=== PATIENT | female | born 1970 | race Caucasian/White ===

== ENCOUNTER 2018-01-11 15:15 | Emergency (ER) | payer MEDICAID, OTHER ==
[~2018-01-11] VITALS: Ht 170.2 cm; Wt 72.6 kg
[~2018-01-11 15:15] MED LIST: ALPR0.2583 PO; LORA-258 PO; METO-290 PO; ONDA4TAB5 PO
[2018-01-11 15:23] VITALS: BP_SYST 128
[2018-01-11] MEDS: KETOROLAC TROMETHAMINE 60 MG/2 ML VIAL IM ONE (16:03)
[2018-01-11 16:26] VITALS: BP_SYST 122
== END 2018-01-11 16:26 | disposition home or self-care (01) ==
LOC: SED 15:15
DX: S16.1XXA Strain of muscle, fascia and tendon at neck level, initial encounter (principal); R03.0 Elevated blood-pressure reading, without diagnosis of hypertension; K21.9 Gastro-esophageal reflux disease without esophagitis; Z88.0 Allergy status to penicillin; Z88.6 Allergy status to analgesic agent; V49.49XA Driver injured in collision with other motor vehicles in traffic accident, initial encounter; Y93.89 Activity, other specified; Y92.89 Other specified places as the place of occurrence of the external cause; Y99.8 Other external cause status
CPT/HCPCS: 81025; 93005; 96372; 99283; J1885

== ENCOUNTER 2018-01-13 19:23 | Inpatient (IN) | payer OTHER ==
[~2018-01-13] VITALS: Ht 170.2 cm; Wt 75.7 kg
[2018-01-13 19:25] VITALS: BP_SYST 120
[2018-01-13] MEDS ORDERED: NACL 0.9% 1,000 ML IV ONE (19:56)
[2018-01-13] MEDS ORDERED: LORazepam 2 MG/ML VIAL IVP ONE ×2 (20:00→21:30)
[2018-01-13] MEDS ORDERED: ONDANSETRON HCL 4 MG/2 ML VIAL IVP ONE (20:00)
[2018-01-13 20:05] LABS: BASOPHILS # (AUTO) 0.1 K/uL (0.0-0.2); BASOPHILS % (AUTO) 0.7 % (0.0-2.0); EOSINOPHILS % (AUTO) 0.1 % (0.0-4.0); HEMATOCRIT 41.3 % (36-48); LYMPHOCYTES # (AUTO) 1.6 K/uL (1.0-5.5); LYMPHOCYTES % (AUTO) 22.5 % (20.5-51.5); MEAN CORPUSCULAR HEMOGLOBIN 33 pg (27-31); MEAN CORPUSCULAR HGB CONC 34 % (32-36); MEAN CORPUSCULAR VOLUME 97 fL (79.0-98.0); MONOCYTES # (AUTO) 0.3 K/uL (0.0-1.0); MONOCYTES % (AUTO) 4.8 % (1.7-9.3); NEUTROPHILS # (AUTO) 5.2 K/uL (1.8-7.7); NEUTROPHILS % (AUTO) 71.9 % (40.0-70.0); PLATELET COUNT (AUTO) 327 K/uL (130-430); RED BLOOD CELL COUNT(AUTO) 4.28 MIL/uL (4.2-6.2); RED CELL DISTRIBUTION WIDTH 12.7 % (9.0-15.0); WHITE BLOOD COUNT (AUTO) 7.3 K/uL (4.8-10.8)
[2018-01-13 20:08] LABS: BILIRUBIN,URINE NEGATIVE (NEGATIVE); BLOOD, URINE NEGATIVE (NEGATIVE); CLARITY/URINE CLEAR (CLEAR); COLOR,URINE YELLOW (YELLOW); GLUCOSE,URINE NEGATIVE (NEGATIVE); KETONES,URINE 3+ (NEGATIVE); LEUKOCYTE ESTERASE ,URINE TRACE (NEGATIVE); NITRITE, URINE NEGATIVE (NEGATIVE); PH,URINE 8.5 (5.0-8.0); PROTEIN URINE 1+ (NEGATIVE)
[2018-01-13] MEDS ORDERED: LORazepam 2 MG/ML VIAL (FOR ER USE) ONE ×3 (20:09→21:54)
[2018-01-13 20:16] LABS: CALCIUM 9.4 mg/dL (8.4-11.0); CREATININE 0.96 mg/dL (0.55-1.30); POTASSIUM 3.5 mmol/L (3.5-5.1)
[2018-01-13 20:18] LABS: BACTERIA,URINE MODERATE /HPF (None Seen); RBC,URINE 0-3 /HPF (0-3); URINE AMORPHOUS PHOSPHATES 2+ /HPF (None Seen)
[2018-01-13 20:21] LABS: ALBUMIN 4.3 g/dL (3.4-4.8); TOTAL BILIRUBIN 1.2 mg/dL (0.0-1.0)
[2018-01-13] MEDS ORDERED: METOCLOPRAMIDE HCL 10 MG/2 ML VIAL IVP ONE (21:30)
[2018-01-13] MEDS ORDERED: ONDANSETRON HCL 4 MG/2 ML VIAL IVP PRN (22:45)
[2018-01-13 22:54] VITALS: BP_SYST 124
[2018-01-13] MEDS: NACL 0.9% 1,000 ML IV SCH (23:57)
[2018-01-14] MEDS: MORPHINE 4 MG/ML INJ. SYRINGE IVP PRN ×5 (01:14→17:58)
[2018-01-14 01:52] VITALS: BP_SYST 143
[2018-01-14 08:00] VITALS: BP_SYST 110
[2018-01-14 08:25] LABS: BASOPHILS # (AUTO) 0.1 K/uL (0.0-0.2); BASOPHILS % (AUTO) 0.9 % (0.0-2.0); HEMATOCRIT 38.1 % (36-48); HEMOGLOBIN 13.1 g/dL (12.0-16.0); LYMPHOCYTES # (AUTO) 2.1 K/uL (1.0-5.5); LYMPHOCYTES % (AUTO) 21.7 % (20.5-51.5); MEAN CORPUSCULAR HEMOGLOBIN 34 pg (27-31); MEAN CORPUSCULAR HGB CONC 35 % (32-36); MEAN CORPUSCULAR VOLUME 98 fL (79.0-98.0); MONOCYTES # (AUTO) 0.6 K/uL (0.0-1.0); MONOCYTES % (AUTO) 6.3 % (1.7-9.3); NEUTROPHILS # (AUTO) 6.7 K/uL (1.8-7.7); NEUTROPHILS % (AUTO) 71.1 % (40.0-70.0); PLATELET COUNT (AUTO) 288 K/uL (130-430); RED BLOOD CELL COUNT(AUTO) 3.89 MIL/uL (4.2-6.2); RED CELL DISTRIBUTION WIDTH 12.6 % (9.0-15.0); WHITE BLOOD COUNT (AUTO) 9.5 K/uL (4.8-10.8)
[2018-01-14 08:48] LABS: CREATININE 0.97 mg/dL (0.55-1.30); POTASSIUM 4.1 mmol/L (3.5-5.1)
[2018-01-14 08:54] LABS: ALBUMIN 3.9 g/dL (3.4-4.8); TOTAL BILIRUBIN 0.8 mg/dL (0.0-1.0)
[2018-01-14] MEDS: ONDANSETRON HCL 4 MG/2 ML VIAL IVP PRN ×2 (09:10→17:56)
[2018-01-14 12:28] VITALS: BP_SYST 118
[2018-01-14 12:39] VITALS: BP_SYST 156
[2018-01-14] MEDS ORDERED: METOCLOPRAMIDE HCL 10 MG/2 ML VIAL IVP SCH (14:15)
[2018-01-14] MEDS: METOCLOPRAMIDE HCL 10 MG/2 ML VIAL IVP SCH ×2 (14:23→20:23)
[2018-01-14 16:20] VITALS: BP_SYST 107
[2018-01-14] MEDS: NACL 0.9% 1,000 ML IV SCH (18:01)
[2018-01-14 19:40] VITALS: BP_SYST 108
[2018-01-14] MEDS: LORazepam 2 MG/ML VIAL IVP PRN (20:24)
[2018-01-15 01:24] VITALS: BP_SYST 112
[2018-01-15] MEDS: LORazepam 2 MG/ML VIAL IVP PRN ×2 (02:13→09:03)
[2018-01-15] MEDS: METOCLOPRAMIDE HCL 10 MG/2 ML VIAL IVP SCH ×3 (02:13→14:47)
[2018-01-15 08:00] VITALS: BP_SYST 108
[2018-01-15] MEDS: NACL 0.9% 1,000 ML IV SCH ×3 (08:45→14:33)
[2018-01-15] MEDS ORDERED: LORazepam 2 MG/ML VIAL IM PRN (11:00)
[2018-01-15 11:23] VITALS: BP_SYST 104
[2018-01-15] MEDS ORDERED: LORazepam 2 MG/ML VIAL IVP PRN (11:45)
[2018-01-15 15:23] VITALS: BP_SYST 110
[2018-01-15 15:29] VITALS: BP_SYST 148
== END 2018-01-15 17:30 | disposition home or self-care (01) | DRG 392 ==
LOC: SED 19:23 → SMU 22:33
PROVIDERS: ADMIT Internal Medicine Hospice and Palliative Medicine; ATTEND Internal Medicine Hospice and Palliative Medicine
DX: A08.4 Viral intestinal infection, unspecified (principal); F41.9 Anxiety disorder, unspecified; G43.A0 Cyclical vomiting, in migraine, not intractable; K21.9 Gastro-esophageal reflux disease without esophagitis; Z88.0 Allergy status to penicillin; Z79.899 Other long term (current) drug therapy; Z88.6 Allergy status to analgesic agent
CPT/HCPCS: 36415; 72072-TC; 72100-TC; 73030; 80053; 81000-TC; 81025; 83690-TC; 85025; 87086; 96361; 96374; 96375; 96376; 99285; J2060; J2270; J2405; J2765

== ENCOUNTER 2021-03-09 09:21 | Inpatient (IN) | payer OTHER, SELFPAY ==
[~2021-03-09] VITALS: Ht 167.6 cm; Wt 86.2 kg
[~2021-03-09 09:21] MED LIST changes: +ALPR0.25 PO; -ALPR0.2583 PO
[2021-03-09 09:35] VITALS: BP_SYST 162
--- NOTE | 2021-03-09 09:35 | NUR ---
PT TO BED 3 FOR EVALUATION.
--- NOTE | 2021-03-09 09:40 | NUR ---
PT AAO AND AMBULATORY REPORTING ABDOMINAL PAIN AND VOMITING SINCE LAST . PT REPORTS THAT SHE HAS VOMITED 10 TIMES TODAY SO FAR AND THAT HER PAIN IN CURRENTLY 8/10 ON PAIN SCALE. PT REPORTS THAT SHE HAS A HISTORY OF CYCLIC VOMITING. ALLERGIES ARE NOTED PENICILLIN AND V/S ARE STABLE.
--- NOTE | 2021-03-09 09:48 | NUR ---
DR BAEZ AT BEDSIDE TO ASSESS.
[2021-03-09] MEDS ORDERED: LORazepam 2 MG/ML VIAL IVP ONE (10:00)
[2021-03-09] MEDS ORDERED: PANTOPRAZOLE SODIUM 40 MG/VIAL (PROTONIX) IVP ONE ×2 (10:00→17:30)
[2021-03-09] MEDS ORDERED: NACL 0.9% 1,000 ML IV ONE ×2 (10:00→10:45)
[2021-03-09] MEDS ORDERED: ONDANSETRON HCL 4 MG/2 ML VIAL IVP ONE ×2 (10:00→12:00)
[2021-03-09] MEDS ORDERED: MORPHINE 4 MG INJ. 4 MG/ML VIAL IVP ONE (10:00)
--- NOTE | 2021-03-09 10:10 | NUR ---
IV ESTABLISHED 20G IV HL INTO RIGHT AC. LABS DRAWN AND URINE SAMPLE SENT TO LAB FOR ANALYSIS.
[2021-03-09 10:21] LABS: BILIRUBIN,URINE 2+ (NEGATIVE); BLOOD, URINE 3+ (NEGATIVE); GLUCOSE,URINE NEGATIVE (NEGATIVE); KETONES,URINE 3+ (NEGATIVE); LEUKOCYTE ESTERASE ,URINE NEGATIVE (NEGATIVE); NITRITE, URINE NEGATIVE (NEGATIVE); PH,URINE 6.5 (5.0-8.0); PROTEIN URINE 1+ (NEGATIVE)
[2021-03-09 10:26] LABS: BASOPHILS % (AUTO) 0.3 % (0.0-2.0); HEMATOCRIT 42.9 % (36-48); LYMPHOCYTES # (AUTO) 1.7 K/uL (1.0-5.5); LYMPHOCYTES % (AUTO) 18.1 % (20.5-51.5); MEAN CORPUSCULAR HEMOGLOBIN 34 pg (27-31); MEAN CORPUSCULAR HGB CONC 35 % (32-36); MEAN CORPUSCULAR VOLUME 97 fL (79.0-98.0); MONOCYTES # (AUTO) 0.6 K/uL (0.0-1.0); MONOCYTES % (AUTO) 6.1 % (1.7-9.3); NEUTROPHILS % (AUTO) 75.5 % (40.0-70.0); PLATELET COUNT (AUTO) 334 K/uL (130-430); RED CELL DISTRIBUTION WIDTH 13.2 % (9.0-15.0); WHITE BLOOD COUNT (AUTO) 9.3 K/uL (4.8-10.8)
[2021-03-09 10:29] LABS: CLARITY/URINE HAZY (CLEAR); COLOR,URINE AMBER (YELLOW)
--- NOTE | 2021-03-09 10:35 | NUR ---
PT REPORTS IMPROVING PAIN SCALE, WILL CONTINUE TO MONITOR. PT IS RESTING QUIETLY WITH HER EYES CLOSED.
[2021-03-09 10:41] LABS: CALCIUM 9.1 mg/dL (8.4-11.0); CREATININE 0.86 mg/dL (0.55-1.30)
[2021-03-09 10:47] LABS: ALBUMIN 4.1 g/dL (3.4-4.8)
[2021-03-09 10:50] LABS: POTASSIUM 2.9 mmol/L (3.5-5.1)
[2021-03-09 10:55] LABS: BACTERIA,URINE FEW /HPF (None Seen); MUCUS,URINE 2+ /LPF (None Seen)
[2021-03-09] MEDS ORDERED: KCL 20 mEq in 100 mL (PREMIX) 100 ML IV ONE (11:00)
[2021-03-09] MEDS ORDERED: POTASSIUM CHLORIDE 20 MEQ TAB.PRT.SR PO ONE (11:00)
[2021-03-09] MEDS ORDERED: fentaNYL CITRATE/PF 100 MCG/2 ML AMP IVP ONE ×2 (12:00→14:15)
--- NOTE | 2021-03-09 12:00 | NUR ---
PT SLEEPING CURRENTLY AND AWAITING DISPOSITION.
--- NOTE | 2021-03-09 13:00 | NUR ---
PT RESTING IN [facility].
[2021-03-09] MEDS ORDERED: MAG-AL HYDROX/SIMETH 30 ML UDC PO ONE (13:45)
[2021-03-09] MEDS ORDERED: DIPHENHYDRAMINE INJ 50 MG/ML VIAL IVP ONE (14:15)
[2021-03-09] MEDS ORDERED: METOCLOPRAMIDE HCL 10 MG/2 ML VIAL IVP ONE (14:15)
--- NOTE | 2021-03-09 14:40 | NUR ---
ADMISSION ORDERS RECEIVED FROM DR. MEEKS FOR M/S OBS BED. ADMISSION BED ORDERED.
--- NOTE | 2021-03-09 15:10 | NUR ---
FRANCES COLLECTED AND SENT TO LAB
--- NOTE | 2021-03-09 15:13 | NUR ---
Medication reconciliation completed with information provided by LACEY FELIPE. Any prior medication reconciliation on file was reviewed and corrected.
--- NOTE | 2021-03-09 16:24 | NUR ---
Patient will be admitted to care of . Admitted to MEDSURG unit. Will go to room 117A. Belongings list completed. Complete and up to date summary report printed. SBAR report to be given at bedside with opportunity for questions.
--- NOTE | 2021-03-09 16:30 | NUR ---
ADMIT NOTE Received pt from ER to the floor with a diagnosis of n/v. Admission process initiated. patient oriented to pain management, safety and call light-teach back done.
--- NOTE | 2021-03-09 16:35 | NUR ---
CONSULTATION PAGED REASON FOR CONSULTATION:NAUSEA,VOMITING WAS CONSULT CALED?Y PERSON WHO WAS NOTIFIED:DORA CONSULTING PHYSICIAN:PARAM RICKS (MARIA DE JESUS VASQUEZ STACK ATTENDANT) SOCIAL MEDIA SR STRATEGY MANAGER SPECIALTY:GI SOCIAL MEDIA SR STRATEGY MANAGER PHONE [phone]: REQUESTING PHYSICIAN:TIAGO ORO
[2021-03-09] MEDS: METOCLOPRAMIDE HCL 10 MG/2 ML VIAL IVP SCH (17:25)
[2021-03-09] MEDS: ONDANSETRON HCL 4 MG/2 ML VIAL IVP PRN (17:26)
[2021-03-09] MEDS ORDERED: PANTOPRAZOLE SODIUM 40 MG/VIAL (PROTONIX) ONE (17:28)
[2021-03-09] MEDS: D5/0.45 NS 1,000 ML IV SCH (17:39)
[2021-03-09] MEDS ORDERED: HYDROcodone/ACETAMIN 5-325 MG TAB (NORCO/ VICODIN) PO PRN (17:45)
[2021-03-09] MEDS ORDERED: ACETAMINOPHEN 325 MG TABLET PO PRN (17:45)
[2021-03-09] MEDS ORDERED: NALOXONE HCL 0.4 MG/ML AMP (NARCAN) IVP PRN ×3 (17:45→18:30)
[2021-03-09 17:53] VITALS: BP_SYST 138
--- NOTE | 2021-03-09 18:20 | NUR ---
HIGH ALERT NOTE: Called Dr. Cotton back at identified within the medical roster to verify physician authenticity.
[2021-03-09] MEDS ORDERED: MORPHINE 2 MG/ML INJ. SYRINGE IVP ONE (18:30)
[2021-03-09 20:57] VITALS: BP_SYST 139
[2021-03-09] MEDS: ALPRAZolam 0.25 MG TABLET PO SCH (20:57)
[2021-03-09] MEDS: HYDROcodone/ACETAMIN 10-325 MG TAB PO PRN (20:57)
--- NOTE | 2021-03-09 20:57 | NUR ---
PAIN MGT PATIENT MEDICATED WITH NORCO 10 MG FOR C/O UPPER ABDOMINAL PAIN 03/22. VITAL SIGNS STABLE.
--- NOTE | 2021-03-09 23:42 | NUR ---
ROUNDS PATIENT RESTING IN BED. NO DISTRESS NOTED. IVF INFUSING. CALL LIGHT WITH IN REACH.
[2021-03-10 00:11] VITALS: BP_SYST 122
[2021-03-10] MEDS: ONDANSETRON HCL 4 MG/2 ML VIAL IVP PRN ×3 (02:02→21:00)
--- NOTE | 2021-03-10 02:03 | NUR ---
PAIN MGT PATIENT MEDICATED WITH ZOFRAN FOR C/O NAUSEA AND NORCO FOR C/O UPPER ABDOMINAL PAIN. VITAL SIGNS STABLE.
[2021-03-10] MEDS: D5/0.45 NS 1,000 ML IV SCH ×3 (02:07→23:03)
[2021-03-10] MEDS: HYDROcodone/ACETAMIN 10-325 MG TAB PO PRN ×3 (06:01→20:54)
--- NOTE | 2021-03-10 06:01 | NUR ---
PAIN MGT PATIENT MEDICATED WITH NORCO FOR C/O ABDOMINAL PAIN.
[2021-03-10 06:29] LABS: BASOPHILS % (AUTO) 0.5 % (0.0-2.0); EOSINOPHILS % (AUTO) 0.4 % (0.0-4.0); HEMATOCRIT 37.9 % (36-48); LYMPHOCYTES # (AUTO) 2.3 K/uL (1.0-5.5); LYMPHOCYTES % (AUTO) 36.1 % (20.5-51.5); MEAN CORPUSCULAR HEMOGLOBIN 34 pg (27-31); MEAN CORPUSCULAR HGB CONC 34 % (32-36); MEAN CORPUSCULAR VOLUME 99 fL (79.0-98.0); MONOCYTES # (AUTO) 0.6 K/uL (0.0-1.0); NEUTROPHILS # (AUTO) 3.4 K/uL (1.8-7.7); PLATELET COUNT (AUTO) 259 K/uL (130-430); RED BLOOD CELL COUNT(AUTO) 3.83 MIL/uL (4.2-6.2); RED CELL DISTRIBUTION WIDTH 13.1 % (9.0-15.0); WHITE BLOOD COUNT (AUTO) 6.4 K/uL (4.8-10.8)
--- NOTE | 2021-03-10 06:31 | NUR ---
CLOSING NOTES PATIENT NEEDS ATTENDED. IVF INFUSING WITH IV LINE INTACT AND PATENT. BED IN LOWEST LOCKED POSITION. CALL LIGHT WITH IN REACH.
[2021-03-10 06:51] LABS: ALBUMIN 3.2 g/dL (3.4-4.8); CALCIUM 8.3 mg/dL (8.4-11.0); CREATININE 0.78 mg/dL (0.55-1.30); PHOSPHORUS 2.5 mg/dL (2.7-4.5); POTASSIUM 3.5 mmol/L (3.5-5.1); TOTAL BILIRUBIN 1.1 mg/dL (0.0-1.0)
[2021-03-10 07:48] VITALS: BP_SYST 118
[2021-03-10] MEDS: ALPRAZolam 0.25 MG TABLET PO SCH ×2 (08:11→20:51)
[2021-03-10] MEDS: PANTOPRAZOLE SODIUM 40 MG/VIAL (PROTONIX) IVP SCH (08:11)
--- NOTE | 2021-03-10 11:30 | NUR ---
Patient nauseated , no abdominal pain, ob continues IV hydration., zofran given.
[2021-03-10 12:08] VITALS: BP_SYST 145
--- NOTE | 2021-03-10 13:00 | NUR ---
IV RE-INSERTION: IV cannula accidentally removed . Restarted on left AC G.22 . Successful after 1 attempts. Resumed current IVF , Will observe for any signs of infiltration.
--- NOTE | 2021-03-10 14:30 | NUR ---
Dr Lula Graham informed regarding on /off vomiting, abdominal pain
[2021-03-10] MEDS: METOCLOPRAMIDE HCL 10 MG/2 ML VIAL IVP SCH (15:31)
--- NOTE | 2021-03-10 15:40 | NUR ---
Complaining acute stabbing pain mid abdomen 03/22 , vitals sign stable , Dr. Cotton informed, will monitor.
--- NOTE | 2021-03-10 15:43 | NUR ---
HIGH ALERT NOTE: Called TIAGO Viveros back at [phone] identified within the medical roster to verify physician authenticity one dose Morphine 2 mg iv x1
[2021-03-10] MEDS ORDERED: MORPHINE 2 MG/ML INJ. SYRINGE IVP ONE (15:45)
[2021-03-10] MEDS ORDERED: MORPHINE 2 MG/ML INJ. SYRINGE ONE (15:49)
[2021-03-10 16:11] VITALS: BP_SYST 151
--- NOTE | 2021-03-10 17:45 | NUR ---
Seen and examined by the special education teachers.
[2021-03-10 20:00] VITALS: BP_SYST 127
[2021-03-11] VITALS: BP_SYST 112
[2021-03-11] MEDS: HYDROcodone/ACETAMIN 10-325 MG TAB PO PRN ×2 (03:01→14:47)
--- NOTE | 2021-03-11 06:48 | NUR ---
Nutrition Update Reynaldo Scale 16 noted. Pt admitted for Hyperglycemia, Hyperosmolality Diet: Mechanical soft BMI: 30.7 kg/m2 RD to follow per nutrition care standards.
[2021-03-11 07:15] LABS: ALBUMIN 3.3 g/dL (3.4-4.8); CALCIUM 8.6 mg/dL (8.4-11.0); CREATININE 0.79 mg/dL (0.55-1.30); PHOSPHORUS 3.4 mg/dL (2.7-4.5); POTASSIUM 3.8 mmol/L (3.5-5.1); TOTAL BILIRUBIN 0.8 mg/dL (0.0-1.0)
[2021-03-11 07:37] LABS: BASOPHILS % (AUTO) 0.6 % (0.0-2.0); EOSINOPHILS # (AUTO) 0.1 K/uL (0.0-0.4); HEMATOCRIT 39.4 % (36-48); HEMOGLOBIN 13.5 g/dL (12.0-16.0); LYMPHOCYTES # (AUTO) 2.6 K/uL (1.0-5.5); LYMPHOCYTES % (AUTO) 42.2 % (20.5-51.5); MEAN CORPUSCULAR HEMOGLOBIN 34 pg (27-31); MEAN CORPUSCULAR HGB CONC 34 % (32-36); MEAN CORPUSCULAR VOLUME 99 fL (79.0-98.0); MONOCYTES # (AUTO) 0.5 K/uL (0.0-1.0); MONOCYTES % (AUTO) 8.3 % (1.7-9.3); NEUTROPHILS # (AUTO) 2.9 K/uL (1.8-7.7); NEUTROPHILS % (AUTO) 47.9 % (40.0-70.0); PLATELET COUNT (AUTO) 263 K/uL (130-430); RED BLOOD CELL COUNT(AUTO) 3.99 MIL/uL (4.2-6.2); WHITE BLOOD COUNT (AUTO) 6.1 K/uL (4.8-10.8)
--- NOTE | 2021-03-11 08:00 | NUR ---
OPENING NOTES: PATIENT RESTING IN BED. NO SIGNS OF ACUTE DISTRESS NOTED. FALL AND SAFETY PRECAUTION REINFORCED. CALL LIGHT WITHIN REACH.
[2021-03-11] MEDS: ONDANSETRON HCL 4 MG/2 ML VIAL IVP PRN ×4 (08:35→20:18)
[2021-03-11] MEDS: PANTOPRAZOLE SODIUM 40 MG/VIAL (PROTONIX) IVP SCH (08:35)
[2021-03-11] MEDS: ALPRAZolam 0.25 MG TABLET PO SCH ×2 (08:35→20:13)
[2021-03-11] MEDS: D5/0.45 NS 1,000 ML IV SCH ×2 (08:46→20:07)
[2021-03-11 12:08] VITALS: BP_SYST 130
[2021-03-11] MEDS: LORazepam 2 MG/ML VIAL IVP PRN ×2 (15:01→20:15)
[2021-03-11 17:13] VITALS: BP_SYST 127
--- NOTE | 2021-03-11 18:59 | NUR ---
CLOSING NOTES: PATIENT RESTING IN BED. NO SIGNS OF ACUTE DISTRESS NOTED. FALL AND SAFETY PRECAUTION REINFORCED. CALL LIGHT WITHIN REACH.
--- NOTE | 2021-03-11 19:50 | NUR ---
OPENING NOTES RECEIVED REPORT FROM DAY RN. PATIENT LAYING IN BED WITH RESPIRATIONS EVEN AND UNLABORED ON RA. LUNG SOUNDS CLEAR. PT STATES, "I FEEL A LOT BETTER THAN I DID YESTERDAY". PT CURRENTLY DENIES N/V. LAC 22G IV PATENT AND INTACT RUNNING IVF. NO SIGNS OF INFILTRATION NOTED. NO SIGNS OF DISTRESS NOTED. BED IN LOW AND LOCKED POSITION. SAFETY PRECAUTIONS IN PLACE. CALL LIGHT WITHIN REACH. WILL CONTINUE TO MONITOR.
[2021-03-11 20:00] VITALS: BP_SYST 112
[2021-03-12] VITALS: BP_SYST 90
[2021-03-12] MEDS: D5/0.45 NS 1,000 ML IV SCH ×2 (02:45→05:52)
[2021-03-12] MEDS: ONDANSETRON HCL 4 MG/2 ML VIAL IVP PRN (04:44)
[2021-03-12] MEDS: LORazepam 2 MG/ML VIAL IVP PRN (04:45)
[2021-03-12 06:27] LABS: BASOPHILS % (AUTO) 0.7 % (0.0-2.0); EOSINOPHILS # (AUTO) 0.1 K/uL (0.0-0.4); EOSINOPHILS % (AUTO) 1.7 % (0.0-4.0); HEMATOCRIT 36.6 % (36-48); HEMOGLOBIN 12.7 g/dL (12.0-16.0); LYMPHOCYTES % (AUTO) 48.4 % (20.5-51.5); MEAN CORPUSCULAR HEMOGLOBIN 34 pg (27-31); MEAN CORPUSCULAR HGB CONC 35 % (32-36); MEAN CORPUSCULAR VOLUME 99 fL (79.0-98.0); MONOCYTES # (AUTO) 0.4 K/uL (0.0-1.0); MONOCYTES % (AUTO) 6.6 % (1.7-9.3); NEUTROPHILS # (AUTO) 2.6 K/uL (1.8-7.7); NEUTROPHILS % (AUTO) 42.6 % (40.0-70.0); PLATELET COUNT (AUTO) 242 K/uL (130-430); RED BLOOD CELL COUNT(AUTO) 3.71 MIL/uL (4.2-6.2); RED CELL DISTRIBUTION WIDTH 13.1 % (9.0-15.0); WHITE BLOOD COUNT (AUTO) 6.1 K/uL (4.8-10.8)
--- NOTE | 2021-03-12 06:48 | NUR ---
CLOSING NOTE Patient resting quietly in bed, in no distress, IV line remains intact and patent, IVF continues to infuse, patient needs attended through out the shift, safety measures maintained. Will continue to monitor until report given to am nurse.
[2021-03-12 06:52] LABS: ALBUMIN 2.9 g/dL (3.4-4.8); CALCIUM 8.3 mg/dL (8.4-11.0); CREATININE 0.81 mg/dL (0.55-1.30); POTASSIUM 4.3 mmol/L (3.5-5.1); TOTAL BILIRUBIN 0.6 mg/dL (0.0-1.0)
--- NOTE | 2021-03-12 07:40 | NUR ---
OPENING NOTES: RECEIVED REPORT FROM PUBLIC HEALTH POLICY ANALYST NURSE. PATIENT IS AWAKE LAYING DOWN IN BED. TOLERATED OXYGEN ON ROOM AIR WITH NO DISTRESS NOTED. IV LINE PATENT AND INTACT WITH NO INFILTRATION NOTED. DENIES PAIN AT THIS TIME. SAFETY, FALL, AND ASPIRATION PRECAUTIONS ARE IN PLACE. BED LOCKED IN LOWEST POSITION AND CALL LIGHT IN REACH. WILL CONTINUE TO MONITOR PATIENT FOR ANY CHANGES.
[2021-03-12 08:00] VITALS: BP_SYST 130
[2021-03-12] MEDS: PANTOPRAZOLE SODIUM 40 MG/VIAL (PROTONIX) IVP SCH (08:22)
[2021-03-12] MEDS: ALPRAZolam 0.25 MG TABLET PO SCH (08:22)
[2021-03-12] MEDS ORDERED: HYDR-3919 PO (11:16)
[2021-03-12] MEDS ORDERED: PRO40 PO (11:16)
[2021-03-12] MEDS ORDERED: METO-290 PO (11:16)
[2021-03-12 12:29] VITALS: BP_SYST 130
--- NOTE | 2021-03-12 15:40 | NUR ---
D/C Patient Patient given medication reconciliation form and D/C instructions. Exit Care provided. Patient verbalized understanding. MD discussed with patient the results and treatment provided. Ambulatory with steady gait for discharge to home. Patient in stable condition, ID band removed. IV catheter removed, intact and dressing applied, no active bleeding. Rx of norco 5/325 #30 given. Patient educated on pain management. All belongings sent with patient.
== END 2021-03-12 15:40 | disposition home or self-care (01) | DRG 394 ==
LOC: SED 09:21 → SMU 14:34 → OBSVTOIN 03-10 14:30
PROVIDERS: ADMIT Preventive Medicine Preventive Medicine/Occupational Environmental Medicine; ATTEND Preventive Medicine Preventive Medicine/Occupational Environmental Medicine
DX: R11.15 Cyclical vomiting syndrome unrelated to migraine (principal); E44.0 Moderate protein-calorie malnutrition; K57.90 Diverticulosis of intestine, part unspecified, without perforation or abscess without bleeding; E87.6 Hypokalemia; R73.9 Hyperglycemia, unspecified; E80.6 Other disorders of bilirubin metabolism; F17.200 Nicotine dependence, unspecified, uncomplicated; R31.9 Hematuria, unspecified; F12.10 Cannabis abuse, uncomplicated; Z20.822 Contact with and (suspected) exposure to COVID-19; E83.52 Hypercalcemia; Z98.51 Tubal ligation status; Z88.0 Allergy status to penicillin; Z79.899 Other long term (current) drug therapy; Z72.89 Other problems related to lifestyle; Z68.30 Body mass index [BMI] 30.0-30.9, adult
CPT/HCPCS: 36415; 76376; 80053; 81000; 83690; 83735; 84100; 84702; 85025; 87086; 96361; 96374; 96375; 96376; 99285; C9113; G0378; J1200; J2060; J2270; J2405; J2765; J3010; J3480; Q9967